=== PATIENT | female | born 1955 | race Asian ===

== ENCOUNTER → 2016-12-02 | Outpatient (CLI) | payer OTHER | LOC: FIMAGING 10:26 | DX: Z12.31 Encounter for screening mammogram for malignant neoplasm of breast (principal); Z85.3 Personal history of malignant neoplasm of breast | CPT/HCPCS: G0202 ==

== ENCOUNTER → 2017-12-17 | Outpatient (CLI) | payer OTHER | LOC: FIMAGING 12:23 | PROVIDERS: ATTEND Internal Medicine Hematology & Oncology | DX: Z12.31 Encounter for screening mammogram for malignant neoplasm of breast (principal); Z85.3 Personal history of malignant neoplasm of breast ==

== ENCOUNTER → 2018-12-27 | Outpatient (CLI) | payer OTHER | LOC: FIMAGING 14:18 | PROVIDERS: ATTEND Family Medicine | DX: Z12.31 Encounter for screening mammogram for malignant neoplasm of breast (principal); Z85.3 Personal history of malignant neoplasm of breast ==